=== PATIENT | female | born 1940 | race Caucasian/White ===

== ENCOUNTER 2018-08-22 10:18 | Day surgery (SDC) | payer OTHER, SELFPAY ==
--- NOTE | 2018-08-22 | PATH_ITS ---
[facility] Accession Number: [id number] . 01 Material submitted: . POLYP IN ASCENDING COLON . 02 Diagnosis: Ascending Colon Polyp: Sessile serrated adenoma. Melanosis coli. MRV/08/24/2018 . 02 Electronically signed: . Augustine Whitley MD, PhD, Pathologist NPI- [id number] . 01 Gross description: . Received in formalin are multiple fragments of llanos-white tissue (1.2 x 0.5 x 0.2 cm in aggregate). Filtered and entirely submitted in cassette A1. ([id number]) /[facility] . 02 Pathologist provided ICD-10: D12.2 . 02 CPT . 210193 Specimen Comment: A duplicate report has been generated due to demographic updates. Performed at: 01 [facility] [address] [id number] MD Xander Hilton MD Phone: [phone] Performed at: 02 [facility] [address] [place], [place] [id number] MD Tanner Ackerman MD Phone: [phone]
[2018-08-22 10:34] VITALS: BP 133/82; PULSE 68; RESP 16; TEMP 36.4; O2SAT 97; BMI 26.1
[2018-08-22] MEDS: SODIUM CHLORIDE 0.9% 1,000 ML 42 ML IV (10:54)
[2018-08-22] MEDS: MIDAZOLAM 5 MG/5 ML VIAL IV (12:48)
[2018-08-22] MEDS: fentaNYL 250 MCG/5 ML INJ IV (12:48)
--- NOTE | 2018-08-22 12:49 | PM.OP.ENDO ---
Operative Date/Time/Diagnoses Date of procedure: 08/22/18 Time of procedure: 12:49 Pre-op diagnosis: See indication and findings Post-op diagnosis: same Procedure & Clinicians Study performed: Colonoscopy Same procedure as scheduled: Yes Indications: Screening Surgeon: Tomasa Osullivan Procedure Notes Procedure in detail: After informed consent was obtained the patient was placed in the left lateral decubitus position. The video colonoscope was introduced the rectum slowly advanced to the cecum. On slow withdrawal mucosa was carefully examined. Scope was removed. Patient tolerated procedure well. Preparation was good. Sedation: Fentanyl 150 mcg Versed 5 mg IV titration Total sedation time 26 min Blood loss none Complications none Findings 1. 1 cm sessile polyp on the IC valve hot snared and removed could completely. The specimen was retrieved 2. 5 mm polyp in the ascending colon just above the IC valve removed with Jumbo biopsy forceps and placed in the same bottle as above. 3. Scattered diverticulosis in the sigmoid colon 4. Otherwise negative colonoscopy to cecum Patient will be informed about the results of the biopsies. If her polyps are adenomatous we might consider performing 1 more colonoscopy in 3-5 years.
[2018-08-22 12:50] VITALS: BP 122/82; PULSE 67; RESP 20; TEMP 36.8; O2SAT 97
--- NOTE | 2019-01-20 11:52 | PM.HP.1 ---
History of Present Illness Date Patient Seen: 08/22/18 Time Patient Seen: 11:52 Chief complaint: [id number] Narrative: Screening Patient History Social History household members: none Family & Social History Social History: household members none Meds Home Medications Medication Instructions Recorded Confirmed Type Lactobacillus acidophilus 1 tab PO QDAY #0 01/23/18 History cyanocobalamin (vitamin B-12) 1,000 mcg PO QDAY #0 01/23/18 History magnesium oxide 400 mg PO QDAY #0 01/23/18 History multivitamin [Multiple Vitamins] 1 tab PO QDAY #0 01/23/18 History omega [id number]-fish oil [Fish Oil] 1,000 mg PO QDAY #0 01/23/18 History Allergies Allergy/AdvReac Type Severity Reaction Status Date / Time No Known Allergies Allergy Uncoded 02/07/18 12:51 Exam Vital Signs (past 8 hours): Oxygen Delivery Method Room Air Narrative Exam Narrative: oopharynx free of lesion chest clear to auscultation percussion Cardiac exam reveals no S3 or murmur Assessment & Plan Assessment & Plan narrative: need for colorectal cancer screening. colonoscopy will be performed today. Risks, benefits, alternatives have been explained.
== END 2018-08-22 13:05 | disposition home or self-care (01) ==
PROVIDERS: Visit Provider Internal Medicine Gastroenterology
PROC: 0DJD8ZZ Inspection of Lower Intestinal Tract, Via Natural or Artificial Opening Endoscopic (ICD-10-PCS; CPT 45378; principal; 2018-08-22 11:30)
DX: Z12.11 Encounter for screening for malignant neoplasm of colon (principal); D12.2 Benign neoplasm of ascending colon; K63.89 Other specified diseases of intestine; K57.30 Diverticulosis of large intestine without perforation or abscess without bleeding
CPT/HCPCS: 45385; 45380; J2250; J3010